=== PATIENT | male | born 1985 | race Caucasian/White ===

== ENCOUNTER 2018-06-22 15:19 | Observation (INO) | payer OTHER ==
--- NOTE | 2018-06-22 15:31 | EDPHY ---
H & P Time Seen by Provider: 06/22/18 15:22 HPI/ROS: CHIEF COMPLAINT: Snowboard accident HISTORY OF PRESENT ILLNESS: Patient is a 32-year-old male presents emergency department after being involved in snowboarding accident. Per report, the patient crashed and flipped and over and. He was wearing a helmet but his friend states that he was unconscious after the incident. Patient subsequently regained consciousness. The patient denies any headache or neck pain. The patient complains of left lower chest and left upper quadrant pain. EMS states that the patient responded normally in route. He received fentanyl 100 mcg for pain and developed subsequent nausea. He received Zofran for nausea. REVIEW OF SYSTEMS: 10 systems were reveiwed and are negative with the exception of the elements mentioned in the history of present illness. Past Medical/Surgical History: Denies Social history: Patient does not smoke Physical Exam: Vitals noted GENERAL: Well-appearing, in no acute distress, alert. C-collar in place HEAD: No evidence of trauma. EYES: PERRLA, EOMI, normal to inspection. ENT: Airway intact, no dental or oral injury, no malocclusion, no hemotympanum , normal external examination. NECK: The trachea is midline. There is no crepitus. The C-spine is nontender. RESPIRATORY: [Clear to auscultation bilaterally, no rales, rhonchi or wheezing. Chest wall: Normal to appearance. No crepitance or deformity. Left lower chest wall tenderness to palpation CVS: Regular rate and rhythm, no rubs, murmurs, or gallops. ABDOMEN: Soft, left upper quadrant tenderness to palpation, nondistended, no bruising or abrasions. Pelvis: Stable. No tenderness palpation. BACK: Normal to inspection, no spinal tenderness, no spinal step off, no notable bruising or abrasions. SKIN: Normal color, warm, dry. No pallor or diaphoresis. EXTREMITIES: Atraumatic, neurovascularly intact distally in all extremities, hips with full range of motion, moves all extremities freely. NEURO/PSYCH: Alert and oriented x 3, GCS 15, normal mood and affect, normal motor sensory exam. Constitutional: Initial Vital Signs Temperature (C) 36.7 C 06/22/18 15:34 Heart Rate 71 06/22/18 15:34 Respiratory Rate 18 06/22/18 15:34 Blood Pressure 126/74 H 06/22/18 15:34 O2 Sat (%) 97 06/22/18 15:34 O2 Delivery Mode Room Air Allergies/Adverse Reactions: No Known Allergies Allergy (Verified 06/22/18 18:14) Home Medications: Medication Instructions Recorded Ibuprofen [Motrin (*)] 200 - 600 mg PO DAILY PRN 06/22/18 Multivitamins [Multivitamin (*)] 1 each PO DAILY 06/22/18 Medical Decision Making - Diagnostics Imaging Results: Imaging Impressions Abdomen CT 06/22/18 15:31 Impression: Wedge defect at the anteromedial lip of the spleen centrally near the hilum, at 3.4 x 2 cm. Embolic phenomenon would make more sense, although focal contusion is a possibility in the setting of trauma. Otherwise, nothing acute in the abdomen and pelvis. Findings and recommendations discussed with Dr. Sage Kaur at 5:15 PM, 06/22/2018. Final report concurs with initial preliminary interpretation. Cervical Spine CT 06/22/18 15:31 Impression: 1. No acute fracture or soft tissue swelling. 2. If the patient has persistent pain or neurologic deficits, consider cervical spine MRI. Findings discussed with Emergency Department physician, SAGE KAUR at 17:07. Chest CT 06/22/18 15:31 Impression: 1. Nothing acute from a traumatic standpoint. 2. Bilateral ill-defined hazy patchy opacities throughout both lungs, with two cavitary lesions just above the left hemidiaphragm. Differential includes septic emboli, staph aureus pneumonia, other cavitary organism such as aspergillosis. Is the patient immunocompromised? Findings and recommendations discussed with Sage Kaur M.D., at 5:10 p.m. on June 22, 2018. Final report concurs with initial preliminary interpretation. Head CT 06/22/18 15:31 Impression: Negative. No acute fracture or evidence of acute intracranial injury. Findings discussed with Emergency Department physician, Sage Kaur M.D. , on June 22, 2018 at 1707. Procedures: Procedure: Trauma ultrasound. Limited echocardiogram for pericardial effusion. Limited bedside ultrasound was performed and interpreted by myself for the indication of: thoracoabdominal trauma utilizing the thoracoabdominal emergency ultrasound protocol. Limited transthoracic echocardiogram: The pericardium was visualized and found to be negative for pericardial fluid. The study was negative for pericardial effusion. Limited abdominal ultrasound for blunt abdominal trauma. 1) The right upper quadrant was visualized and was found to be negative for intraperitoneal fluid. 2) The left upper quadrant was visualized and found to be negative for intraperitoneal fluid. The study was felt to be negative for free intraperitoneal fluid. Limited pelvic ultrasound was conducted for abdominal trauma. The bladder was visualized and did not reveal an anechoic area outside of the adjacent urinary bladder. The study was felt to be negative for free intraperitoneal fluid. ED Course/Re-evaluation: I met EMS on arrival. I took report from the grad intern. In the emergency department I discussed possible etiologies with the patient. Answered all his questions. Due the patient's reported loss of consciousness, chest pain and left upper quadrant pain CT imaging was performed. The patient consented. Fast exam negative 1635: Patient is stable prior to CT imaging. 1705: CT of the head and neck are negative per Dr. Trivedi. Please refer to his dictated report. CT of the abdomen pelvis: Please refer the dictated report by Dr. Jenni Barnard. Patient has no significant traumatic finding. However there is bilateral ill- defined hazy patchy opacities with 2 cavitary lesions just above the left hemidiaphragm. There is also a small abnormality to the spleen. No active bleeding. The radiologist raised the possibility of septic emboli, Staph aureus pneumonia or other cavitary organisms. I discussed the result with the patient. Answered all his questions. I discussed the case with Dr. Gerard from the hospitalist service. She will admit. I also discussed case with Dr. Mo Velasco from Trauma surgery. He will consult on the patient. 18 30: Dr. Velasco was in the emergency department evaluated the patient. After his evaluation he felt that the condition was trauma related. He will admit the patient for further observation. I discussed this with the hospitalist service. Differential Diagnosis: My differential includes but is not limited to splenic injury, viscus injury, rib fracture, pneumothorax, hemothorax, spinal injury, subarachnoid hemorrhage, subdural hematoma, epidural hematoma, concussion - Data Points Laboratory Results: Laboratory Results 06/22/18 15:45 06/22/18 15:45 06/22/18 06/22/18 06/22/18 15:45 15:45 15:45 WBC 12.92 10^3/uL H 10^3/uL (3.80-9.50) RBC 4.69 10^6/uL 10^6/uL (4.40-6.38) Hgb 14.7 g/dL g/dL (13.7-17.5) Hct 42.5 % % (40.0-51.0) MCV 90.6 fL fL (81.5-99.8) MCH 31.3 pg pg (27.9-34.1) MCHC 34.6 g/dL g/dL (32.4-36.7) RDW 13.0 % % (11.5-15.2) Plt Count 219 10^3/uL 10^3/uL (150-400) MPV 10.6 fL fL (8.7-11.7) Neut % (Auto) 87.2 % H % (39.3-74.2) Lymph % (Auto) 4.9 % L % (15.0-45.0) [place] % (Auto) 7.1 % % (4.5-13.0) Eos % (Auto) 0.1 % L % (0.6-7.6) Baso % (Auto) 0.2 % L % (0.3-1.7) Nucleat RBC Rel Count 0.0 % % (0.0-0.2) Absolute Neuts (auto) 11.27 10^3/uL H 10^3/uL (1.70-6.50) Absolute Lymphs (auto) 0.63 10^3/uL L 10^3/uL (1.00-3.00) Absolute Monos (auto) 0.92 10^3/uL H 10^3/uL (0.30-0.80) Absolute Eos (auto) 0.01 10^3/uL L 10^3/uL (0.03-0.40) Absolute Basos (auto) 0.03 10^3/uL 10^3/uL (0.02-0.10) Absolute Nucleated RBC 0.00 10^3/uL 10^3/uL (0-0.01) Immature Gran % 0.5 % % (0.0-1.1) Immature Gran # 0.06 10^3/uL 10^3/uL (0.00-0.10) PT 13.6 SEC SEC (12.0-15.0) INR 1.08 (0.83-1.16) APTT 26.6 SEC SEC (23.0-38.0) Sodium 138 mEq/L mEq/L (135-145) Potassium 3.8 mEq/L mEq/L (3.5-5.2) Chloride 110 mEq/L mEq/L (97-110) Carbon Dioxide 20 mEq/l L mEq/l (22-31) Anion Gap 8 mEq/L mEq/L (6-14) BUN 20 mg/dL mg/dL (7-23) Creatinine 1.0 mg/dL mg/dL (0.7-1.3) Estimated GFR > 60 Glucose 88 mg/dL mg/dL (70-100) Calcium 8.8 mg/dL mg/dL (8.5-10.4) Departure - Departure Disposition: [facility] Inpatient Acute Clinical Impression: Pneumatocele of lung Head injury Qualifiers: Encounter type: initial encounter Qualified Code(s): S09.90XA - Unspecified injury of head, initial encounter Condition: Good
[2018-06-22 15:53] LABS: PLATELET COUNT 219 10^3/uL (150-400)
[2018-06-22 16:02] LABS: INR 1.08 (0.83-1.16); PROTIME(PATIENT) 13.6 SEC (12.0-15.0)
[2018-06-22] MEDS ORDERED: IOPAMIDOL (ISOVUE-300) 100 ML BTL ONE (16:24)
[2018-06-22] MEDS ORDERED: AZITHROMYCIN IV 500 MG in NS 250 ML IV ONE (17:42)
--- NOTE | 2018-06-22 18:24 | PDGENHP ---
History and Physical - Chief Complaint abdominal pain after snowboard crash - History of Present Illness 32 yo male with no past medical history presents to ED via EMS after a crash on his snowboard at [place]. He was feeling well prior to this. He was boarding at high speed and caught an edge, catapulting forward and tumbled out of control. His friend witnessed the accident and thinks he lost consciousness for a few seconds. He has good recall of the incident. He immediately felt pain in his left upper quadrant and left ribs. He continues to have this pain, which is worse when he takes a deep breath. He denies prior fevers, chill, night sweats or cough. He currently denies CP or SOB at rest. In the ED, CT of the chest revealed 2 small cavitary lesions at the left lung base and a splenic deformity of the spleen. He is being evaluated by the trauma service and will be admitted for further management. History Information - Allergies/Home Medication List Allergies/Adverse Reactions: No Known Allergies Allergy (Verified 06/22/18 18:14) Home Medications: Ibuprofen [Motrin (*)] 200 - 600 mg PO DAILY PRN 06/22/18 [Last Taken Unknown] Multivitamins [Multivitamin (*)] 1 each PO DAILY 06/22/18 [Last Taken 06/22/18] I have personally reviewed and updated: family history, medical history, social history, surgical history - Past Medical History no pertinent PMH - Surgical History Reports: no pertinent surgical hx - Family History Positive for: non-pertinent - Social History Smoking Status: Never smoked Alcohol Use: Occasionally Drug Use: Marijuana Additional social history: Works at in [employer]. Has had female partners, with unprotected sex 2 months ago. Review of Systems Review of Systems: ROS: 10pt was reviewed & negative except for what was stated in HPI & below Physical Exam Physical Exam: Temp Pulse Resp BP Pulse Ox 36.7 C 70 16 126/77 H 97 06/22/18 15:34 06/22/18 16:45 06/22/18 16:45 06/22/18 16:45 06/22/18 16:45 Constitutional: no apparent distress Eyes: PERRL Ears, Nose, Mouth, Throat: moist mucous membranes Cardiovascular: regular rate and rhythym, no murmur, rub, or gallop Respiratory: no respiratory distress, clear to auscultation Gastrointestinal: normoactive bowel sounds, other (soft, +TTP LUQ, no r/r/g, +BS ) Skin: warm Musculoskeletal: full muscle strength Neurologic: AAOx3 Psychiatric: interacting appropriately Lab Data & Imaging Review 06/22/18 15:45 06/22/18 15:45 WBC 12.92 10^3/uL (3.80-9.50) H 06/22/18 15:45 RBC 4.69 10^6/uL (4.40-6.38) 06/22/18 15:45 Hgb 14.7 g/dL (13.7-17.5) 06/22/18 15:45 Hct 42.5 % (40.0-51.0) 06/22/18 15:45 MCV 90.6 fL (81.5-99.8) 06/22/18 15:45 MCH 31.3 pg (27.9-34.1) 06/22/18 15:45 MCHC 34.6 g/dL (32.4-36.7) 06/22/18 15:45 RDW 13.0 % (11.5-15.2) 06/22/18 15:45 Plt Count 219 10^3/uL (150-400) 06/22/18 15:45 MPV 10.6 fL (8.7-11.7) 06/22/18 15:45 Neut % (Auto) 87.2 % (39.3-74.2) H 06/22/18 15:45 Lymph % (Auto) 4.9 % (15.0-45.0) L 06/22/18 15:45 [place] % (Auto) 7.1 % (4.5-13.0) 06/22/18 15:45 Eos % (Auto) 0.1 % (0.6-7.6) L 06/22/18 15:45 Baso % (Auto) 0.2 % (0.3-1.7) L 06/22/18 15:45 Nucleat RBC Rel Count 0.0 % (0.0-0.2) 06/22/18 15:45 Absolute Neuts (auto) 11.27 10^3/uL (1.70-6.50) H 06/22/18 15:45 Absolute Lymphs (auto) 0.63 10^3/uL (1.00-3.00) L 06/22/18 15:45 Absolute Monos (auto) 0.92 10^3/uL (0.30-0.80) H 06/22/18 15:45 Absolute Eos (auto) 0.01 10^3/uL (0.03-0.40) L 06/22/18 15:45 Absolute Basos (auto) 0.03 10^3/uL (0.02-0.10) 06/22/18 15:45 Absolute Nucleated RBC 0.00 10^3/uL (0-0.01) 06/22/18 15:45 Immature Gran % 0.5 % (0.0-1.1) 06/22/18 15:45 Immature Gran # 0.06 10^3/uL (0.00-0.10) 06/22/18 15:45 PT 13.6 SEC (12.0-15.0) 06/22/18 15:45 INR 1.08 (0.83-1.16) 06/22/18 15:45 APTT 26.6 SEC (23.0-38.0) 06/22/18 15:45 Sodium 138 mEq/L (135-145) 06/22/18 15:45 Potassium 3.8 mEq/L (3.5-5.2) 06/22/18 15:45 Chloride 110 mEq/L (97-110) 06/22/18 15:45 Carbon Dioxide 20 mEq/l (22-31) L 06/22/18 15:45 Anion Gap 8 mEq/L (6-14) 06/22/18 15:45 BUN 20 mg/dL (7-23) 06/22/18 15:45 Creatinine 1.0 mg/dL (0.7-1.3) 06/22/18 15:45 Estimated GFR > 60 06/22/18 15:45 Glucose 88 mg/dL (70-100) 06/22/18 15:45 Calcium 8.8 mg/dL (8.5-10.4) 06/22/18 15:45 Visualized and Interpreted Chest x-ray results: Yes Chest X-Ray results: no infiltrate Assessment & Plan Assessment: 32 yo male with no past medical history presents to ED via EMS after a high speed snowboard crash with abdominal pain. Abdominal pain - CT abd shows wedge shaped spleen deformity (pers reviewed / inter and discussed with Dr. Velasco, trauma surgeon). This is most likely caused by his trauma. Further management per trauma team. Cavitary lung lesion - x2 in LLL. Discussed with Dr. Velasco, who suspects these represent pneumatocele 2/2 trauma. He has no infectious symptoms and is afebrile. No h/o HIV or reason for immunocompromised state. Will defer further atbx as his imaging findings and history are all most c/w trauma. Appreciate trauma service assistance. Will repeat CXR in am and he likely warrants outpt CT in 2-4 weeks to ensure resolution. Full code Dispo - obs
[2018-06-22] MEDS ORDERED: ACETAMINOPHEN 325 MG TAB PO PRN (18:45)
[2018-06-22] MEDS ORDERED: HYDROCODONE/APAP 5/325 TAB PO PRN ×2 (18:45→18:50)
[2018-06-22] MEDS ORDERED: ONDANSETRON 4 MG/2 ML VIAL IVP PRN (18:45)
[2018-06-22] MEDS ORDERED: KETOROLAC 30 MG/1 ML SDV IVP ONE (18:45)
--- NOTE | 2018-06-22 19:35 | GHP ---
[f rep st] PREOP HISTORY AND PHYSICAL DATE OF ADMISSION: 06/22/2018 REASON FOR EVALUATION: Snowboarding trauma. HISTORY OF PRESENT ILLNESS: 32-year-old healthy male presents to the emergency room after catching an edge on his snowboard earlier this afternoon. He was helmeted. He did sustain loss of consciousness. He was brought down by EMS. His complaints were that of left-sided chest pain upon coming to consciousness. He was brought to the emergency room for further evaluation and management. ED workup included CT imaging of his head, chest, abdomen, and pelvis disclosed concerns for a possible cavitary lung lesion with a splenic abnormality, uncertain for trauma versus possible infectious etiology. Surgery has been requested for further recommendations. The patient reports otherwise being in good health. Denies a history for travel. He denies a history of pulmonary disease. He denies any recent history of pneumonia. He denies a history of fevers or chills. He denies history of chest pain. Denies a history of rashes. Denies history of lower extremity swelling. PAST MEDICAL HISTORY: None. PAST SURGICAL HISTORY: None. HOME MEDICATIONS: None. ALLERGIES: No known drug allergies. SOCIAL HISTORY: No significant alcohol or tobacco. Occasional marijuana use. 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 REVIEW OF SYSTEMS: Notable for acute traumatic injuries only. FAMILY HISTORY: Noncontributory. PHYSICAL EXAM: VITAL SIGNS: Temperature 36.7, blood pressure 130/70, pulse 64 , respirations 16. GENERAL: Patient is alert, appropriate, comfortable. HEENT : Scalp was atraumatic. Pupils are equally round and reactive to light and accommodation. Extraocular muscles intact. A small superficial abrasion over the nasal bridge. NECK: Cervical spine nontender. Trachea midline without crepitus. HEART: Regular without murmurs. LUNGS: Clear bilaterally. CHEST: Without step-offs or deformities. Focal left upper quadrant/lower chest tenderness without overlying ecchymosis. ABDOMEN: Soft with mild left upper quadrant tenderness without rebound or guarding. PELVIS: Nontender. EXTREMITIES: Normal bilateral upper and lower extremities without step-offs or deformities. 2+ radial and pedal pulses. Normal nailbeds in bilateral upper extremities, as well as toes. BACK: Thoracic and lumbar spines nontender. LABORATORY DATA: White count 13, hemoglobin 15, platelets 219. INR 1.0. Electrolytes within reference range. Liver enzymes within reference range. Procalcitonin negligible. IMAGING: CT images were directly reviewed on PACS and with on-call radiologist. CT head unremarkable. CT chest described as scattered, hazy, patchy infiltrates bilaterally with left lower lobe cavitary lesion. No pneumothorax, no hemothorax. CT abdomen and pelvis with a small splenic tip hypodensity with small perisplenic surrounding haziness. No large perisplenic fluid or other acute abdominal findings. IMPRESSION: Snowboard injury with blunt chest and abdominal trauma. Suspect the patient's pulmonary and abdominal findings are more likely related to a traumatic pneumatocele rather than cavitary lung lesion in a low risk patient with no antecedent complaints or infectious risk factors. His splenic lesion is also more likely consistent with a small subcapsular hematoma rather than septic infarct. Would recommend the patient be admitted for overnight observation with repeat chest imaging in a.m. to exclude the possibility for pneumothorax or a pulmonary contusion blossoming. His spleen injury is unlikely to require further intervention. Care, plan and findings were discussed extensively with the patient, as well as emergency room physician and hospitalist service physician on-call. Would hold off any further infectious workup at this time with plans for outpatient repeat CT and abdominal imaging in the next few weeks. /[id number]/MODL MTDD
[2018-06-22] MEDS: KETOROLAC 15 MG/1 ML SDV IVP SCH (23:34)
[2018-06-23 07:40] VITALS: BP 119/67
[2018-06-23] MEDS: KETOROLAC 15 MG/1 ML SDV IVP SCH (07:41)
--- NOTE | 2018-06-23 11:45 | TRAUMAPNT ---
Trauma Tertiary Progress Note New Findings: No new findings Assessment/Plan: 32-year-old gentleman who presented to the hospital after snowboarding injury. Discussed findings with Dr. Velasco and Dr. Gerard. Reviewed x-rays with Dr. Brown who believes that this is a traumatic pneumatocele as well as splenic injury. He has been hemodynamically stable. Hematocrit and hemoglobin are stable this morning. White blood cell count has come down to 6 from 13 on arrival. No fevers. Alert oriented no distress Sclerae anicteric Oropharynx moist Regular rate and rhythm Clear to auscultation No neurologic deficits Abdomen soft nontender nondistended Left chest wall bruising. Impression traumatic left side injury/blunt trauma to chest and lung. Plan: Discharged home. Follow up in 3 weeks in the office for re-evaluation with repeat CT scan. The patient has been apprised of his prognosis and condition. He has been advised of reasons return to the hospital including but not limited to pain not controlled by [id number] medication, increased work of breathing, signs of anemia, abdominal distention or increased pain. Inability to tolerate food. Objective: Vital Signs Temp Pulse Resp BP Pulse Ox 36.6 C 52 L 18 119/67 94 06/23/18 07:36 06/23/18 07:36 06/23/18 07:36 06/23/18 07:36 06/23/18 07:36 Laboratory Results 06/23/18 05:12 06/22/18 06/23/18 06/24/18 05:59 05:59 06:59 Intake Total 1000 Output Total 400 Balance 600 PT 13.6 SEC (12.0-15.0) 06/22/18 15:45 INR 1.08 (0.83-1.16) 06/22/18 15:45
--- NOTE | 2018-06-23 11:47 | PDDCSUM ---
Discharge Summary Discharge Summary: Date of admission: 06/22/2018 Date of discharge: 06/23/2018 Principal diagnosis traumatic pneumatocele, grade 1 splenic injury trauma Hospital course: The patient was brought to the hospital for evaluation of torso trauma following snowboarding accident. His x-rays were concerning for possibility of granulomatous infection of the lung but given his history and clinical findings trauma surgery and Medicine both evaluated with traumatic process being the principal diagnosis. The patient was brought to the hospital advanced diet activity serial exam and hemoglobin hematocrit were obtained. The patient was found to be hemodynamically stable with no new injuries on tertiary exam. Discharged home on Tylenol or Motrin for pain. Follow up in the office in 1-2 weeks for re-evaluation. At that time repeat CT scan of the chest abdomen and pelvis will be obtained. The patient has been given instructions to follow up as described as well as reasons for concerns for repeat evaluation or return to hospital including but not limited to: Pain not controlled by medication, inability to tolerate food, fevers, abdominal distention and increased pain, or increased work of breathing inability to catch his breath.
== END 2018-06-23 11:51 | disposition home or self-care (01) ==
LOC: F3E 19:52
PROVIDERS: ADMIT Surgery; ATTEND Surgery
DX: S36.020A Minor contusion of spleen, initial encounter (principal); S27.391A Other injuries of lung, unilateral, initial encounter; S09.90XA Unspecified injury of head, initial encounter; Y93.23 Activity, snow (alpine) (downhill) skiing, snowboarding, sledding, tobogganing and snow tubing; V00.311A Fall from snowboard, initial encounter; Y92.838 Other recreation area as the place of occurrence of the external cause; Y99.9 Unspecified external cause status
CPT/HCPCS: 70450; 71045; 71260; 72125; 74177; 92523; 96365; 96368; 96375; 96376; 97161; 97165; 99285; G0378; J0456; J0696; J1885; Q9967